=== PATIENT | female | born 2000 | race Caucasian/White ===

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

== ENCOUNTER 2018-09-25 18:31 | Emergency (ER) | payer BC, OTHER ==
[~2018-09-25] VITALS: Ht 172.7 cm; Wt 68.0 kg
[2018-09-25 18:32] VITALS: BP 101/64
[2018-09-25] MEDS ORDERED: MOBIC7.5 MG PO (21:18)
== END 2018-09-25 22:08 | disposition home or self-care (01) ==
LOC: ER 18:31
DX: S50.02XA Contusion of left elbow, initial encounter (principal); W22.8XXA Striking against or struck by other objects, initial encounter; Y92.89 Other specified places as the place of occurrence of the external cause; Y99.8 Other external cause status; Z91.09 Other allergy status, other than to drugs and biological substances